=== PATIENT | female | born 1965 | race Caucasian/White ===

== ENCOUNTER 2017-03-02 16:36 | Emergency (ER) | payer OTHER ==
[~2017-03-02] VITALS: Ht 157.5 cm; Wt 76.2 kg
[~2017-03-02 16:36] MED LIST: PREDNISONE 20MG20 MG PO; PROVENTIL0.09 MG/A1 PO; ROBITUSSIN W/CO10 ML PO; ZITHROMAX Z-PA250 M1 PO; ZYRTEC ALLERGY10 MG PO
[2017-03-02] MEDS ORDERED: AMLODIPINE BES2.5 M1 PO (18:21)
[2017-03-02] MEDS ORDERED: MULTI-DAY VITA1 EACH PO (18:22)
[2017-03-02] MEDS ORDERED: VITAMIN D250000 UNIT (18:22)
--- NOTE | 2017-03-02 18:47 | ED SKIN/ALLERGY COMPLAINT ---
History of Present Illness General Chief Complaint: Skin Rash/ Abcess Stated Complaint: RASH R FOREARM Source: patient Exam Limitations: no limitations Vital Signs & Intake/Output Vital Signs & Intake/Output ED Intake and Output 03/03 0000 03/02 1200 Intake Total Output Total Balance Patient 168 lb Weight Allergies Coded Allergies: Sulfa (Sulfonamide Antibiotics) (Severe, RASH AND DIFFICULTY BREATHING 03/02/17) Penicillins (Mild, RASH 03/02/17) Reconcile Medications Amlodipine Besylate 2.5 MG TABLET 1 TAB PO DAILY BP (Reported) Ergocalciferol (Vitamin D2) (Vitamin D2) (Unknown Strength) CAPSULE (Unknown Dose) UNKNOWN (Reported) Multivitamin (Multi-Day Vitamins) 1 EACH TABLET 1 TAB PO DAILY SUPPLEMENT ( Reported) Triage Note: TRIAGE: PT TO ER C/C RASH AND SCRATCH FRAZIER TO R ARM. CONCERNED SHE WAS BIT BY SOMETHING. ONSET OVERNIGHT. Triage Nurses Notes Reviewed? yes HPI: This patient is a 51-year-old female who presented to the emergency department today for evaluation of a rash to her right forearm. She reported that she woke up and noticed that the rash was there. She reported that it is itchy. She reported that she thinks that she must have scratched during the night. The patient denied any pain. No fevers or chills. She reported that she was wearing a bracelet in that spot yesterday. (YUKI MATHEWS PA-C) Past History Travel History Traveled to [place] past 21 day No Medical History Any Pertinent Medical History? see below for history Neurological: NONE EENT: NONE Cardiovascular: hypertension Respiratory: bronchitis Gastrointestinal: diverticulitis, W/ABSCESS Hepatic: NONE Renal: NONE Musculoskeletal: NONE Psychiatric: NONE Endocrine: NONE Blood Disorders: NONE Cancer(s): NONE SHOEBLACK/Reproductive: NONE Surgical History Surgical History: non-contributory Psychosocial History What is your primary language Liberian Tobacco Use: Never used ETOH Use: occasional use Illicit Drug Use: denies illicit drug use Family History Hx Contributory? No (YUKI MATHEWS PA-C) Review of Systems Review of Systems Constitutional: Reports: no symptoms. EENTM: Reports: no symptoms. Respiratory: Reports: no symptoms. Cardiovascular: Reports: no symptoms. GI: Reports: no symptoms. Musculoskeletal: Reports: no symptoms. Skin: Reports: see HPI. Neurological/Psychological: Reports: no symptoms. All Other Systems: Reviewed and Negative (YUKI MATHEWS PA-C) Physical Exam Physical Exam General Appearance: well developed/nourished, no apparent distress, alert, awake Comments: Well-developed well-nourished person in no acute distress HEENT: Head normocephalic, moist because membranes Neck: Supple, no lymphadenopathy Back: Normal gait Respiratory: No respiratory distress. Speaking in full sentences Extremities: No edema, full range of motion Neuro: Alert and oriented x3 Psych: Mood affect normal, normal memory normal judgment. Skin: Warm and dry. Several, small, irregular areas of erythema approximately 2 mm in greatest diameter to the forearm with no surrounding erythema or edema. Excoriations overlying this rash. Nontender to palpation. No vesicles noted (YUKI MATHEWS PA-C) Progress Differential Diagnosis: abscess/cellulitis, allergic reaction, contact dermatitis, drug reaction, erythema multiforme, lyme disease, shingles, urticaria Plan of Care: This patient is a 51-year-old female who presented for evaluation of a right forearm rash. Excoriations noted over the rash. This patient was wearing a bracelet in the same spot yesterday. Likely contact dermatitis. No other associated symptoms. No vesicles noted. No linear distribution of the rash. (YUKI MATHEWS PA-C) Departure Departure Disposition: HOME OR SELF CARE Condition: Stable Clinical Impression Primary Impression: Contact dermatitis Qualifiers: Contact dermatitis type: unspecified Contact dermatitis trigger: other trigger Qualified Code: L25.8 - Unspecified contact dermatitis due to other agents Referrals: ALIA CORTEZ,BALBIR Menendez (PCP/Family) Additional Instructions: Keep the area clean. You may take [id number] Benadryl for itching and irritation. You may use odjy-[id number]-vyaxplh cortisone cream. Return for any worsening symptoms or concerns. Departure Forms: Customer Survey General Discharge Information (YUKI MATHEWS PA-C) PA/BEVELING MACHINE OPERATOR Co-Sign Statement Statement: ED Attending supervision documentation- [] I saw and evaluated the patient. I have also reviewed all the pertinent lab results and diagnostic results. I agree with the findings and the plan of care as documented in the PA's/BEVELING MACHINE OPERATOR's documentation. [X] I have reviewed the ED Record and agree with the PA's/BEVELING MACHINE OPERATOR's documentation. [] Additions or exceptions (if any) to the PAs/BEVELING MACHINE OPERATOR's note and plan are summarized below: [] (JESICA CORTEZ,BRAULIO)
[2017-03-02 18:48] VITALS: BP 146/87
== END 2017-03-02 18:50 ==
LOC: ERH 16:36
DX: L25.9 Unspecified contact dermatitis, unspecified cause (principal)
CPT/HCPCS: 99282

== ENCOUNTER 2018-06-08 13:50 | Emergency (ER) | payer OTHER ==
[~2018-06-08] VITALS: Ht 157.5 cm; Wt 75.3 kg
[~2018-06-08 13:50] MED LIST changes: +AMLODIPINE BES2.5 M1 PO; +MULTI-DAY VITA1 EACH PO; +VITAMIN D250000 UNIT
--- NOTE | 2018-06-08 16:06 | ED EYE COMPLAINT ---
History of Present Illness General Chief Complaint: Eye Problems Stated Complaint: "TROUBLE SEEING OUT OF MY RT EYE" Source: patient Exam Limitations: no limitations Vital Signs & Intake/Output Vital Signs & Intake/Output Vital Signs Date Time Temp Pulse Resp B/P B/P Pulse O2 O2 Flow FiO2 Mean Ox Delivery Rate 06/08 1558 Room Air 06/08 1401 96.9 99 20 151/79 95 Room Air Allergies Coded Allergies: Sulfa (Sulfonamide Antibiotics) (Severe, RASH AND DIFFICULTY BREATHING 03/02/17) Penicillins (Mild, RASH 03/02/17) Reconcile Medications Amlodipine Besylate 2.5 MG TABLET 1 TAB PO DAILY BP (Reported) Ergocalciferol (Vitamin D2) (Vitamin D2) (Unknown Strength) CAPSULE (Unknown Dose) UNKNOWN (Reported) Multivitamin (Multi-Day Vitamins) 1 EACH TABLET 1 TAB PO DAILY SUPPLEMENT ( Reported) Triage Note: PT TO ED C/O BLURRY VISION TO RIGHT EYE WHEN LOOKING TO THE SIDE. STATES "IT'S LIKE I'M LOOKING THROUGH A BUBBLE". DENIES VISION CHANGES OR PAIN. STATES ON CIPRO AND FLAGY FOR DIVERTICULITIS. ALSO STATES THIS AM WHILE PUTTING ON EYE LINER SHE MIGHT HAVE GOTTEN SOME IN HER EYE. Triage Nurses Notes Reviewed? yes HPI: patient presents for evaluation of trouble seeing from the right eye. Patient 36 states that while she was in [facility] drive[facility] she had an onset of visual disturbance in the right temporal visual field. It consisted of movement and waviness "like seeing through a bubble". The incident lasted about 45 minutes. Patient states she was putting on eyeliner a few minutes before the incident occurred and feels she may have gotten some in her eye. Patient denies any associated focal neurologic deficits or facial droop. Past History Travel History Traveled to [place] past 21 day No Medical History Any Pertinent Medical History? see below for history Neurological: NONE EENT: NONE Cardiovascular: hypertension Respiratory: bronchitis Gastrointestinal: diverticulitis, W/ABSCESS Hepatic: NONE Renal: NONE Musculoskeletal: NONE Psychiatric: NONE Endocrine: NONE Blood Disorders: NONE Cancer(s): NONE PRESERVATIONIST/Reproductive: NONE Surgical History Surgical History: non-contributory Psychosocial History What is your primary language Malay Tobacco Use: Never used ETOH Use: denies use Illicit Drug Use: denies illicit drug use Family History Hx Contributory? No Review of Systems Review of Systems Constitutional: Reports: no symptoms. Eyes: Reports: see HPI. Ear: Reports: no symptoms. Nose: Reports: no symptoms. Mouth: Reports: no symptoms. Throat: Reports: no symptoms. Respiratory: Reports: no symptoms. Cardiovascular: Reports: no symptoms. GI: Reports: no symptoms. Genitourinary: Reports: no symptoms. Musculoskeletal: Reports: no symptoms. Skin: Reports: no symptoms. Neurological/Psychological: Reports: no symptoms. Hematologic/Endocrine: Reports: no symptoms. Immunologic/Allergic: Reports: no symptoms. All Other Systems: Reviewed and Negative Physical Exam General Appearance: well developed/nourished General Inspection: normal inspection General Inspection: SEE BELOW Physical Exam Comments: Gen.: Well-nourished, well-developed, no acute respiratory distress. Head: Normocephalic, atraumatic. Eyes: See above, funduscopic exam of the right eye, normal consensual and pupillary responses bilaterally Ears: Normal inspection bilaterally Nose: Normal inspection Throat/mouth : Moist mucosa Neck: Supple, full range of motion, no goiter Lungs: Quiet respirations Back: Normal range of motion Extremities: Normal range of motion grossly, no cyanosis clubbing or edema of the upper extremities Neurologic: Cranial nerves 2 through 12 intact, speech is clear, gait is stable Skin: warm and dry Psychiatric: Calm, cooperative, no apparent delusions or hallucinations Progress Differential Diagnosis: detached retina, retinal art./v. occlusion, visual scotomata, multiple sclerosis, temporal arteritis, amaurosis fugax Plan of Care: Orders Procedure Date/time Status C-REACTIVE PROTEIN 06/08 1710 Complete HIGH SENSITIVITY CRP 06/08 1652 Complete WESTERGREN SED RATE 06/08 1652 Complete ED- VISUAL ACUITY 06/08 1604 Active Laboratory Tests 06/08/18 1710: C-Reactive Prot, Quant 2.0 H, C-React Prot High Sens > 15.0 H, ESR Westergren 30 H Radiology Impression: PATIENT: PRESTON GRIER PRESENT AGE: 52 PATIENT ACCOUNT NO: [id number] : 63 LOCATION: [facility] ORDERING PHYSICIAN: Uzair Holley MD SERVICE DATE: 06/08/18-1649 EXAM TYPE : CAT - CT HEAD WO IV CONTRAST EXAMINATION: CT HEAD WITHOUT CONTRAST CLINICAL INFORMATION: Right eye disturbances, question CVA COMPARISON: MRI brain 2016 TECHNIQUE: Contiguous axial imaging was performed from the skull base to vertex without intravenous administration of contrast. DLP: 620 mGy-cm FINDINGS: There is no evidence of acute intracranial hemorrhage or territorial infarction. There are a few tiny scattered punctate calcifications. No abnormal mass effect or midline shift is seen. Wheatley to white matter differentiation is well preserved. No extra-axial fluid collections are identified. The ventricles are normal in size. There is no abnormal attenuation within the brain parenchyma. The osseous structures and soft tissues are normal. The mastoid air cells and visualized portions of the paranasal sinuses are well aerated. IMPRESSION: No acute intracranial process. DICTATED BY: Yolette Grey MD DATE/TIME DICTATED:1707 CELL CLEANER:ORIN DATE/TIME TRANSCRIBED:06/08/181707 CONFIDENTIAL, DO NOT COPY WITHOUT APPROPRIATE AUTHORIZATION. <Electronically signed in Other Vendor System> SIGNED BY: Yolette Grey MD 06/08/18 2460 Comments: 06/08/2018 7:23:28 PM I have updated lesion on her test results. She has no temporal pain or tenderness, no jaw claudication and no unintentional weight loss so I doubt temporal arteritis. Her elevated ESR and CRP are likely due to her active diverticulitis. There is no current signs or symptoms of CVA with the possibility of a TIA has been discussed. Although patient does have a history of hypertension given the absence of any other deficits I doubt TIA. Departure Departure Disposition: HOME OR SELF CARE Condition: Stable Clinical Impression Primary Impression: Transient visual disturbance, right Referrals: Karen CORTEZ,Jeannette Menendez (PCP/Family) Additional Instructions: Follow-up with your primary care doctor for further evaluation of your transient visual disturbance. Your physician should consider repeating an ESR and CRP when your diverticulitis resolves. please follow-up with your veneer joiner as soon as possible as well. Return if any concerns or sudden worsening. Thank you for choosing the [facility] for your care. It was a pleasure to serve you today. Uzair Holley M.D. [facility] Departure Forms: Customer Survey General Discharge Information
--- NOTE | 2018-06-08 17:17 | CT SCAN REPORT ---
EXAMINATION: CT HEAD WITHOUT CONTRAST CLINICAL INFORMATION: Right eye disturbances, question CVA COMPARISON: MRI brain 05/10/2017 TECHNIQUE: Contiguous axial imaging was performed from the skull base to vertex without intravenous administration of contrast. DLP: 620 mGy-cm FINDINGS: There is no evidence of acute intracranial hemorrhage or territorial infarction. There are a few tiny scattered punctate calcifications. No abnormal mass effect or midline shift is seen. Wheatley to white matter differentiation is well preserved. No extra-axial fluid collections are identified. The ventricles are normal in size. There is no abnormal attenuation within the brain parenchyma. The osseous structures and soft tissues are normal. The mastoid air cells and visualized portions of the paranasal sinuses are well aerated. IMPRESSION: No acute intracranial process.
[2018-06-08 19:32] VITALS: BP 145/85
== END 2018-06-08 19:33 ==
LOC: ERH 13:50
DX: H53.9 Unspecified visual disturbance (principal)